=== PATIENT | female | born 1950 | race Caucasian/White ===

== ENCOUNTER 2023-07-02 12:17 | Emergency (ER) | payer MEDICARE ==
[~2023-07-02] VITALS: Ht 152.4 cm; Wt 48.2 kg
[2023-07-02 12:23] VITALS: TEMP 98.2
[2023-07-02] MEDS ORDERED: PERTUSS(ACELL),DIPH,TET VAC/PF 0.5 ML SYRINGE IM. ONE (13:30)
[2023-07-02] MEDS ORDERED: NEOMYCIN/BACITRACIN/POLYMYXIN B OINTMENT PACKET TP ONE (13:30)
[2023-07-02] MEDS ORDERED: ACETAMINOPHEN 325 MG TABLET PO ONE (13:30)
[2023-07-02] MEDS ORDERED: LIDO700A15 TP (16:27)
[2023-07-02 16:36] VITALS: BP 142/72; PULSE 67; RESP 16
== END 2023-07-02 16:43 | disposition home or self-care (01) ==
LOC: EMS 12:32
DX: S80.02XA Contusion of left knee, initial encounter (principal); S80.01XA Contusion of right knee, initial encounter; S80.212A Abrasion, left knee, initial encounter; S80.211A Abrasion, right knee, initial encounter; E11.9 Type 2 diabetes mellitus without complications; E78.00 Pure hypercholesterolemia, unspecified; E03.9 Hypothyroidism, unspecified; W19.XXXA Unspecified fall, initial encounter; Y93.89 Activity, other specified; Y92.89 Other specified places as the place of occurrence of the external cause; Y99.8 Other external cause status
CPT/HCPCS: 72100; 82962; 90471; 90715; 99284